=== PATIENT | female | born 1995 | race Caucasian/White ===

== ENCOUNTER 2017-01-07 13:50 | Observation (INO) | payer MEDICAID, SELFPAY ==
[2017-01-07 14:16] VITALS: BMI 24.3
--- NOTE | 2017-01-07 14:36 | HP.PCM_ITS ---
Problem List (1) Heroin dependence Status: Chronic (2) Cocaine use Status: Chronic (3) Hepatitis C Status: Chronic History of Present Illness Date of Admission: 01/07/17 Chief Complaint: nausea and vomiting, sweating and diarrhea. requesting medical stabilization for opiate withdrawal The patient is a 21 year old F who presented to the [facility] office today requesting medical stabilization to detox from chronic heroin abuse. She has been using heroin IV for 4 years. She also uses cocaine on a regular basis. Her parents have both been addicted to illicit drugs. Her mother is currently clean but, the father is still using. Nata is living with her GM. She is employed. she has been to rehab at [facility] in the past and was getting Suboxone from Dr. Alfaro. She was clean for 8-9 months but, they started hanging around her friends who used again. Has been using again for 2-3 years again now. She has been diagnosed with Hep C in the past but has not been treated. She has never seen a ID doctor. she last used heroin on 01/05. She took oral Dilaudid last night when the sx got bad. today she is having diarrhea, diaphoresis, N/V and restless leg.....sx have improved with tx since arriving on [facility]. She plans on attending [facility] again after her hospitalization is finished. To her knowledge she has not been tested for HIV. Past Medical History Past Medical History (Chronic Problems): Chronic Problems Cocaine use (Chronic) Hepatitis C (Chronic) Heroin dependence (Chronic) Allergies No Known Allergies Allergy (Verified 03/03/16 22:13) Home Medications: Ambulatory Orders Medication Instructions Recorded No Known/Unobtainable [No Known 03/03/16 Home Medications] Surgical History: noncontributory Psychiatric History: No pertinent psych hx [employer] WORKER History: No pertinent FIRST CAL[employer] WORKER history, - - has never been Lives: - - with her grandmother Smoking Status: Never smoker Tobacco Use: Non-smoker Alcohol: Rare Drugs: Cocaine, Heroin - *Family History Maternal History Items: - - mother is a drug addict...currently clean Paternal History Items: - - father continues to use illicit drugs Review of Systems Constitutional: Reports: Malaise. Denies: Chills, Fever Eyes: Denies: Blurred vision, Vision Change HEENT: Reports: - - rhinorrhea. Denies: Head Aches, Sinus Congestion, Sinus Drainage Cardiovascular: Denies: Chest Pain, Light Headedness, Palpitations Respiratory: Denies: Cough, Shortness of breath at rest, Sputum production Gastrointestinal: Reports: Abdominal Pain, Diarrhea, Nausea, Vomiting Genitourinary: Denies: Dysuria Gynecological: Denies: Breast symptoms, Vaginal discharge Musculoskeletal: Denies: Joint Pain, Joint Tenderness Skin: Reports: - - she has track ceballos on the left hand....no sign of cellulitis. Denies: Rash, Wounds Neurological: Denies: Numbness, Tingling, Focal weakness Psychiatric: Denies: Anxiety, Depression, Homicidal Ideations, Suicidal Ideations Endocrine: Denies: Hx of Thyroiditis Hematologic/ Lymphatic: Denies: Hx of blood clot VTE Information - Inpt Only VTE Present on Admission: No VTE Mechan Device Prophylaxis: None VTE Pharm Prophylaxis ordered?: No Reason prophylaxis not ordered:: Treatment Not Indicated - she is ambulatory and is at very low risk for DVT - Physical Exam General: Alert, Oriented x3, Cooperative HEENT: Atraumatic, PERRLA, EOMI, Normocephalic Oral: No Gingival or Mucosal Lesions/ Ulcerations Neck: Supple, No JVD, Negative Carotid Bruits Lungs: Clear to auscultation, Normal air movement Cardiovascular: Regular rate, No murmurs Abdomen: Bowel Sounds Present, Soft, Non Tender Extremities: No edema, Capillary Refill Less than 3 Seconds Skin: No rashes, No breakdown, - - track ceballos on the hand...no erythema or DC Musculoskeletal: No Muscle Wasting Neurological: Cranial nerves II-XII grossly intact, Neuro grossly intact Psych/Mental Status: Normal Affect, Appropriate Weight: 124 lb 5.451 oz Body Mass Index (BMI) 24.3 Assessment/Plan Impression 1. heroin dependence in active withdrawal - admitted for medical stabilization and plans on going to [facility] as an OP post discharge 2. cocaine use/abuse 3. hx of hepatitis C admitted for medical stabilization. General orders and opiod order sets initiated.
[2017-01-07] MEDS: Buprenorphine HCl 2 MG TAB.SUBL SL ×2 (14:48→21:52)
[2017-01-07] MEDS: cloNIDine HCl 0.2 MG Tablet PO (14:49)
[2017-01-07 14:55] VITALS: BP 116/64; PULSE 89; RESP 18; TEMP 36.8
[2017-01-07] MEDS: QUEtiapine 25 MG Tablet PO ×2 (15:29→21:52)
[2017-01-07 17:06] LABS: Absolute Lymphocyte Count 1.05 X10^3/ul (0.83-4.51); Absolute Neutrophil Count 8.2 X10^3/uL (2.0-7.7); Basophil# 0.04 X10^3/uL; Basophil% 0.4 % (0-1); Eosinophil# 0.01 X10^3/uL; Eosinophils% 0.1 % (0-5); Hematocrit 40.2 % (37-47); Hemoglobin 13.1 g/dl (12.0-15.0); Lymphocyte # 1.05 X10^3/ul (4.0); Lymphocyte % 10.9 % (19-41); Mean Corp Hgb Conc 32.6 g/gl (32-36); Mean Corpuscular Hgb 29.1 pg (27.0-32.0); Mean Corpuscular Volume 89.3 fL (81-99); Mean Platelet Vol. 12.4 fl (6.2-12.0); Monocyte# 0.36 X10^3/uL; Monocyte% 3.7 % (0-10); Neutrophil # 8.18 X10^3/uL (2.7-7.7); Neutrophil % 84.6 % (47-70); Platelet Count 288 K/mm3 (150-450); RBC Distribution Width CV 13.9 % (11.6-14.6); RBC Distribution Width SD 44.6 fl (35.1-43.9); White Blood Count 9.7 K/mm3 (4.4-11.0)
[2017-01-07 17:09] LABS: POSITIVE COUNT NO; POSITIVE DIFFERENTIAL NO; POSITIVE MORPHOLOGY NO
[2017-01-07 17:37] LABS: ALB/GLOB Ratio 0.9 RATIO (0.9-2.4); AST(SGOT) 23 U/L (15-37); Alanine Aminotransfer ALT/SGPT 42 U/L (12-78); Albumin, Serum 3.8 g/dL (3.4-5.0); Alkaline Phosphatase 95 U/L (45-117); Anion Gap 9 (5-15); BUN 7 mg/dL (7-18); BUN/Creat Ratio 11.3 RATIO (10-20); Calcium,Total 9.2 mg/dL (8.5-10.1); Chloride 104 mmol/L (98-107); Creatinine, Serum 0.62 mg/dL (0.55-1.02); EST Glomerular Filtration Rate 129 mL/min (>60); Est Glom Filt Rate - Afr Amer 156 mL/min (>60); Estimated Creatinine Clearance 103.97 ml/min; Globulin 4.1 g/dL (2.3-3.5); Glucose 107 mg/dL (70-110); Potassium 3.8 mmol/L (3.5-5.1); Protein, Total 7.9 g/dL (6.4-8.2); Sodium Level 141 mmol/L (136-145)
[2017-01-07 18:22] LABS: Pregnancy, Serum, hCG Quali. NEGATIVE Negative (0-9 Nonpreg)
[2017-01-07 18:35] VITALS: BP 101/52; PULSE 73; RESP 18; TEMP 36.9; O2SAT 99
--- NOTE | 2017-01-07 18:44 | NURSING ---
C/O feeling like she cannot settle down, like she constantly needs to move and is anxious. 50 mg vistaril given per orders. see mar. will continue to monitor.
[2017-01-07 20:03] VITALS: BP 100/58; PULSE 68; RESP 16; TEMP 36.6; O2SAT 100
[2017-01-07] MEDS: Carbidopa/Levodopa 25/100 Tablet PO (20:09)
[2017-01-07] MEDS: traZODone 50 MG Tablet PO (21:51)
[2017-01-07 22:11] VITALS: RESP 16
[2017-01-07] MEDS: Methocarbamol 750 MG Tablet PO (23:07)
[2017-01-08 06:13] VITALS: BP 92/58; PULSE 63; RESP 18; TEMP 36.4; O2SAT 99
[2017-01-08 06:17] VITALS: RESP 18
[2017-01-08] MEDS: Methocarbamol 750 MG Tablet PO ×3 (06:20→18:19)
[2017-01-08] MEDS: Buprenorphine HCl 2 MG TAB.SUBL SL ×3 (06:20→22:01)
[2017-01-08 06:51] LABS: Amphetamine Urine VISTA NEGATIVE (<1000 ng/mL); Barbiturate Urine VISTA NEGATIVE (< 200 ng/mL); Benzodiazepine Urine VISTA POSITIVE (< 200 ng/mL); Cocaine Urine VISTA POSITIVE (< 300 ng/mL); Ecstacy Urine VISTA NEGATIVE (< 500 ng/mL); Methadone Urine VISTA NEGATIVE (< 300 ng/mL); PCP Urine VISTA NEGATIVE (< 25 ng/mL); THC Urine VISTA NEGATIVE (< 50 ng/mL); Vista UDS pH Range 7
[2017-01-08] MEDS: Thiamine Hydrochloride 100 MG Tablet PO (07:41)
[2017-01-08] MEDS: Multivitamins,Ther W-Minerals Tablet 1 TABLET PO (07:41)
[2017-01-08] MEDS: Folic Acid 1 MG Tablet PO (07:41)
[2017-01-08 10:11] VITALS: BP 93/53; PULSE 72; RESP 16; TEMP 36.7; O2SAT 98
--- NOTE | 2017-01-08 11:00 | PCM.PROGNOTE ---
Subjective: Chief complaint: Follow-up after admission for medical stabilization for opioid withdrawal. Patient seen and examined. No acute events overnight. She has no more nausea vomiting. Denies any more abdominal pain or diarrhea. She still having leg cramps and restlessness. Denies fever or chills. Denied chest pain or shortness of breath. Vital signs are stable. - Physical Exam General: Alert, Oriented x3, Cooperative, No apparent distress HEENT: Atraumatic, PERRLA, EOMI Oral: Moist Mucosa, No Gingival or Mucosal Lesions/ Ulcerations Neck: Supple, No JVD, Negative Carotid Bruits, Trachea Midline, Thyroid Normal Size and Texture Lungs: Clear to auscultation, No rhonchi, No wheeze, No rales, Diminished Cardiovascular: Regular rate, Regular Rhythm, Normal S1, Normal S2, No murmurs Abdomen: Bowel Sounds Present, Soft, Non Tender, Non-Distended, No Hepato-splenomegaly Extremities: No clubbing, No cyanosis, No edema Skin: No rashes, No breakdown Neurological: Neuro grossly intact Psych/Mental Status: Normal Affect, Appropriate, Alert and oriented to time, place, person, mood and affect Vital Signs Temp Pulse Resp BP Pulse Ox 98.1 F 72 16 93/53 98 01/08/17 10:11 01/08/17 10:11 01/08/17 10:11 01/08/17 10:11 01/08/17 10:11 Oxygen Delivery Method Room Air Weight: 124 lb 5.451 oz Body Mass Index (BMI) 24.3 Intake and Output for Last 24 Hours 01/06/17 01/07/17 01/08/17 23:59 23:59 23:59 Intake Total 680 200 Balance 680 200 Laboratory Tests Past 24 Hrs 01/07/17 01/07/17 01/07/17 15:50 15:50 15:50 WBC 9.7 RBC 4.50 Hgb 13.1 Hct 40.2 MCV 89.3 MCH 29.1 MCHC 32.6 RDW 13.9 RDW Differential 44.6 H Plt Count 288 MPV 12.4 H Immature Gran % (Auto) 0.300 Neut % (Auto) 84.6 H Lymph % (Auto) 10.9 L [place] % (Auto) 3.7 Eos % (Auto) 0.1 Baso % (Auto) 0.4 Absolute Neuts (auto) 8.2 H Absolute Lymphs (auto) 1.05 Total Counted Not Reportable Sodium 141 Potassium 3.8 Chloride 104 Carbon Dioxide 28.0 Anion Gap 9 BUN 7 Creatinine 0.62 Estim Creat Clear Calc 103.97 Est GFR (MDRD) Af Amer 156 Est GFR (MDRD) Non-Af 129 BUN/Creatinine Ratio 11.3 Glucose 107 Calcium 9.2 Total Bilirubin 0.30 AST 23 ALT 42 Alkaline Phosphatase 95 Total Protein 7.9 Albumin 3.8 Globulin 4.1 H Albumin/Globulin Ratio 0.9 Serum , Qual NEGATIVE Urine Opiates Screen Urine Methadone Screen Ur Barbiturates Screen Ur Phencyclidine Scrn Ur Amphetamines Screen U Methamphetamin-MDMA U Benzodiazepines Scrn Urine Cocaine Screen U Cannabinoids Screen Ur Drug Screen Comment 01/08/17 06:30 WBC RBC Hgb Hct MCV MCH MCHC RDW RDW Differential Plt Count MPV Immature Gran % (Auto) Neut % (Auto) Lymph % (Auto) [place] % (Auto) Eos % (Auto) Baso % (Auto) Absolute Neuts (auto) Absolute Lymphs (auto) Total Counted Sodium Potassium Chloride Carbon Dioxide Anion Gap BUN Creatinine Estim Creat Clear Calc Est GFR (MDRD) Af Amer Est GFR (MDRD) Non-Af BUN/Creatinine Ratio Glucose Calcium Total Bilirubin AST ALT Alkaline Phosphatase Total Protein Albumin Globulin Albumin/Globulin Ratio Serum , Qual Urine Opiates Screen POSITIVE H Urine Methadone Screen NEGATIVE Ur Barbiturates Screen NEGATIVE Ur Phencyclidine Scrn NEGATIVE Ur Amphetamines Screen NEGATIVE U Methamphetamin-MDMA NEGATIVE U Benzodiazepines Scrn POSITIVE H Urine Cocaine Screen POSITIVE H U Cannabinoids Screen NEGATIVE Ur Drug Screen Comment Assessment/Plan This is a 21 years old female patient admitted because of nausea, vomiting, diarrhea due to opioid withdrawal and admitted for medical stabilization. #1 opioid withdrawal: Patient has been using IV heroin and cocaine. Her vital signs are stable. Her routine blood work is unremarkable. Serum test was negative. Urine drug screen was positive for opioids, benzodiazepines and cocaine. She is on tapering course of Subutex, as needed Sinemet, Bentyl, Seroquel. She is on ibuprofen and Tylenol for pain and aches. She reported improvement of her symptoms. Plan: Continue same treatment. #2 chronic hepatitis C: Never been treated for it. Her LFT is normal. #3 DVT prophylaxis: Low risk patient, no prophylaxis indicated. This note was generated with [employer] software. It may contain incorrect words, spelling, and punctuation that were not noted in checking the note before signing.
[2017-01-08 13:41] VITALS: BP 93/53; PULSE 69; RESP 16; TEMP 36.4; O2SAT 100
--- NOTE | 2017-01-08 15:18 | CHAPLAIN ---
followed dietary into room to introduce myself and role to patient; pt is pleasant and says it would be fine to stop back another time to visit with her; affirmed patient decision to be here and offered future support
[2017-01-08] MEDS: QUEtiapine 25 MG Tablet PO (16:24)
[2017-01-08 17:33] VITALS: BP 95/51; PULSE 88; RESP 16; TEMP 36.7; O2SAT 97
[2017-01-08] MEDS: Carbidopa/Levodopa 25/100 Tablet PO (18:19)
--- NOTE | 2017-01-08 18:20 | NURSING ---
MED PER PT REQUEST AND MAR FOR RESTLESS LEGS
[2017-01-08 22:00] VITALS: BP 102/46; PULSE 78; RESP 15; TEMP 37; O2SAT 99
[2017-01-08] MEDS: traZODone 50 MG Tablet PO (22:01)
[2017-01-09] VITALS (7 sets, daily range): BP systolic 109–122; BP diastolic 62–76; PULSE 80–109; RESP 16–18; TEMP 36.5–37; O2SAT 100
[2017-01-09] MEDS: Buprenorphine HCl 2 MG TAB.SUBL SL ×2 (06:27→18:19)
--- NOTE | 2017-01-09 08:02 | PN_ITS ---
Subjective: Chief complaint: Follow-up after admission for opioid withdrawal for medical stabilization. Patient seen and examined. No acute events overnight. She is asymptomatic, no significant complaints. Vital signs are stable. - Physical Exam General: Alert, Oriented x3, Cooperative, No apparent distress HEENT: Atraumatic, PERRLA, EOMI Oral: Moist Mucosa, No Gingival or Mucosal Lesions/ Ulcerations Neck: Supple, No JVD, Negative Carotid Bruits, Trachea Midline, Thyroid Normal Size and Texture Lungs: Clear to auscultation, No rhonchi, No wheeze, No rales Cardiovascular: Regular rate, Regular Rhythm, Normal S2, No murmurs Abdomen: Bowel Sounds Present, Soft, Non Tender, Non-Distended, No Hepato- splenomegaly Extremities: No clubbing, No cyanosis, No edema Skin: No rashes, No breakdown Neurological: Neuro grossly intact Psych/Mental Status: Normal Affect, Appropriate Vital Signs Temp Pulse Resp BP Pulse Ox 98.5 F 80 16 109/66 100 01/09/17 06:00 01/09/17 06:00 01/09/17 06:00 01/09/17 06:00 01/09/17 06:00 Oxygen Delivery Method Room Air Weight: 124 lb 5.451 oz Body Mass Index (BMI) 24.3 Intake and Output for Last 24 Hours 01/07/17 01/08/17 01/09/17 23:59 23:59 23:59 Intake Total 206 665 9923 Balance 215 957 9464 Assessment/Plan This is a 21 years old female patient admitted because of nausea, vomiting, diarrhea due to opioid withdrawal and admitted for medical stabilization. #1 opioid withdrawal: She is on tapering course of Subutex, as needed Sinemet, Bentyl, Seroquel, methocarbamol, Vistaril, Imodium and multivitamins. Her vital signs remained stable. Symptoms significantly improved, almost resolved. Her routine blood work is unremarkable. Serum test was negative. Urine drug screen was positive for opioids, benzodiazepines and cocaine. Plan: Continue same treatment. #2 chronic hepatitis C: Never been treated for it. Her LFT is normal. #3 DVT prophylaxis: Low risk patient, no prophylaxis indicated. This note was generated with [employer] software. It may contain incorrect words, spelling, and punctuation that were not noted in checking the note before signing.
[2017-01-09] MEDS: Thiamine Hydrochloride 100 MG Tablet PO (09:28)
[2017-01-09] MEDS: Folic Acid 1 MG Tablet PO (09:28)
[2017-01-09] MEDS: Multivitamins,Ther W-Minerals Tablet 1 TABLET PO (09:28)
[2017-01-09] MEDS: Methocarbamol 750 MG Tablet PO (14:14)
--- NOTE | 2017-01-09 17:05 | CHAPLAIN ---
brief follow up from a brief introduction yesterday; pt said she is doing fine as she watches Nexflex on her smartphone; pt says she has a plan through [facility] and has family around to help her; pt is affirmed by this dental scheduling coordinator for taking these steps and seeking a better way; no other needs noted
[2017-01-09] MEDS: traZODone 50 MG Tablet PO (22:16)
--- NOTE | 2017-01-10 00:10 | NURSING ---
Pt awake now, she has been sleeping after nurse gave her the trazadone. Father is staying the night. He has been going in and out of the room several times during the night. Nurse spoke to him about nurse giving patient sleeping pill, so she could sleep tonight. Father had brought in some fast food also. Nurse explained that he should not be bringing food into patient. He stated she only ate a few of his chicken nuggets.
[2017-01-10 05:58] VITALS: BP 91/64; PULSE 75; RESP 16; TEMP 35.8
[2017-01-10] MEDS: Buprenorphine HCl 2 MG TAB.SUBL SL (06:54)
[2017-01-10 07:57] VITALS: BP 100/62; PULSE 72; RESP 18; TEMP 37.1
[2017-01-10] MEDS: Folic Acid 1 MG Tablet PO (08:01)
[2017-01-10] MEDS: Thiamine Hydrochloride 100 MG Tablet PO (08:01)
[2017-01-10] MEDS: Multivitamins,Ther W-Minerals Tablet 1 TABLET PO (08:02)
--- NOTE | 2017-01-10 08:13 | PN_ITS ---
Subjective: Chief complaint: Follow-up after admission for opioid withdrawal for medical stabilization. Patient seen and examined. No acute events overnight. She is asymptomatic, denied any significant complaints. Has no more nausea or vomiting. Denied abdominal pain, diarrhea. Denied body aches or pains. Vital signs are stable. - Physical Exam General: Alert, Oriented x3, Cooperative, No apparent distress HEENT: Atraumatic, PERRLA, EOMI Oral: Moist Mucosa, No Gingival or Mucosal Lesions/ Ulcerations Neck: Supple, No JVD, Negative Carotid Bruits, Trachea Midline, Thyroid Normal Size and Texture Lungs: Clear to auscultation, No rhonchi, No wheeze, No rales Cardiovascular: Regular rate, Regular Rhythm, Normal S1, Normal S2, No murmurs Abdomen: Bowel Sounds Present, Soft, Non Tender, Non-Distended, No Hepato- splenomegaly Extremities: No clubbing, No cyanosis, No edema Skin: No rashes, No breakdown Neurological: Neuro grossly intact Psych/Mental Status: Normal Affect, Appropriate Vital Signs Temp Pulse Resp BP Pulse Ox 98.8 F 72 18 100/62 100 01/10/17 07:57 01/10/17 07:57 01/10/17 07:57 01/10/17 07:57 01/09/17 06:00 Oxygen Delivery Method Room Air Weight: 124 lb 5.451 oz Body Mass Index (BMI) 24.3 Intake and Output for Last 24 Hours 01/08/17 01/09/17 01/10/17 23:59 23:59 23:59 Intake Total 200 1142 470 Balance 200 1142 470 Assessment/Plan This is a 21 years old female patient admitted because of nausea, vomiting, diarrhea due to opioid withdrawal and admitted for medical stabilization. #1 opioid withdrawal: Symptoms resolved, has no more complaints. Vital signs are stable. She is on last day of tapering course of Subutex, as needed Sinemet , Bentyl, Seroquel, methocarbamol, Vistaril, Imodium and multivitamins. Her routine blood work is unremarkable. Serum test was negative. Urine drug screen was positive for opioids, benzodiazepines and cocaine. Plan: DC home today. #2 chronic hepatitis C: Never been treated for it. Her LFT is normal. #3 DVT prophylaxis: Low risk patient, no prophylaxis indicated. This note was generated with Dragon dictation software. It may contain incorrect words, spelling, and punctuation that were not noted in checking the note before signing.
--- NOTE | 2017-01-10 10:51 | PCM.DC ---
- Discharge Diagnoses Current Active Problems: Current Active and Chronic Problems Cocaine use (Chronic) Hepatitis C (Chronic) Heroin dependence (Chronic) You will use the following diet at home:: Regular Your food should be the consistency of: Regular Discharge Activity: Return to Normal Activity Weight Bearing Status: Full weight bearing Call your doctor if you observe: Fever of 101 or Higher, Shortness of breath, Dizziness, Fainting spells, Chest pain, Increased palpitations (irregular heartbeat), Uncontrolled pain Additional Instructions: [facility]. Allergies/Adverse Reactions: Allergies No Known Allergies Allergy (Verified 03/03/16 22:13) Medications to take at Discharge No Known/Unobtainable [No Known Home Medications] 03/03/16 Primary Care Physician: Todd Bello MD [Primary Care Provider] - Please follow up with your Primary Care Physician in: as needed.
--- NOTE | 2017-01-10 13:08 | DS.PCM_ITS ---
Discharge Date and Diagnosis Date of Admission: 01/07/17 Date of Discharge: 01/10/17 - Primary Discharge Diagnosis Opioid withdrawal, admitted for medical stabilization. - Secondary Discharge Diagnosis Chronic Problems Cocaine use (Chronic) Hepatitis C (Chronic) Heroin dependence (Chronic) Hospital Course and Treatment Operations: None Procedures: None Summary of Care Provided: The patient is a 21 year old F admitted because of symptoms of nausea, vomiting , diarrhea and body aches due to opiate withdrawal. She has been using IV heroin for 4 years. She was admitted for medical stabilization through [facility] service protocol. Her vital signs remained stable throughout admission. Her routine blood work was unremarkable. LFT and lipase were normal. Serum test was negative. Urine drug screen was positive for opioids, benzodiazepines and cocaine. She was treated with tapering course of Subutex, as needed Sinemet, Bentyl, Seroquel, methocarbamol, Vistaril, Imodium and multivitamins. With above-mentioned treatment, patient symptoms improved and she completed the tapering course of Subutex. She had a history of chronic hepatitis C, never been treated for it and his LFT was normal. Patient discharged home in a stable medical condition, recommended to follow-up with [facility] program regarding further instructions, recommended follow-up with PCP as needed. Discharge Activity: Return to Normal Activity Weight Bearing Status: Full weight bearing Call your doctor if you observe: Fever of 101 or Higher, Shortness of breath, Dizziness, Fainting spells, Chest pain, Increased palpitations (irregular heartbeat), Uncontrolled pain Home Medications: Medications to take at Discharge No Known/Unobtainable [No Known Home Medications] 03/03/16 Primary Care Physician: Todd Bello MD [Primary Care Provider] - Please follow up with your Primary Care Physician in: as needed. Additional Instructions: Please follow-up with [facility] program. Disposition: Home Minutes spent on discharge:: 22 Patient Condition:: Good Meaningful Use Info Meaningful Use Diagnoses (Choose all that apply): None applicable
== END 2017-01-10 11:14 | disposition home or self-care (01) | DRG 773 ==
LOC: MS2 04-20 15:31
PROVIDERS: Admitting Provider Internal Medicine; Family Provider Family Medicine; PCP Family Medicine; Visit Provider Hospitalist
DX: F11.23 Opioid dependence with withdrawal (principal); B18.2 Chronic viral hepatitis C; F14.90 Cocaine use, unspecified, uncomplicated
CPT/HCPCS: 80053; 80307; 84703; 85025; 97802; 99218; G0378; G0379

== ENCOUNTER 2017-12-14 01:14 | Emergency (ER) | payer MEDICAID, SELFPAY ==
[2017-12-14 01:16] VITALS: BP 129/88; PULSE 108; RESP 16; TEMP 36.9; O2SAT 96; BMI 23.6
--- NOTE | 2017-12-14 01:28 | ED.DCSUM_ITS ---
- ER Visit Summary Date of Service: 12/14/17 Chief Complaint: Gum infection History of Present Illness: The patient is a 22 F who complains of 2-3 days of pain in her gums. She states this is throughout her entire mouth both sides upper and lower. She denies fevers nausea vomiting. No jaw or facial swelling. She has had some associated headaches as well. She complains of a mild headache currently. Physical Examination: Afebrile heart rate 108 vitals otherwise normal Patient resting comfortably no distress No trismus no sublingual edema no dental tenderness she does have widespread dental decay she has gingival erythema no necrosis Heart regular rate and rhythm Lungs are clear Neck supple with no lymphadenopathy Test Results: Not indicated Emergency Department Course and Treatment: History and examination are consistent with gingivitis. She does not have evidence of acute necrotizing ulcerative gingivitis. She does not have signs of focal dental abscess. She was advised on oral care and was referred to a list of local dental clinics. She was given a dose of naproxen here and a prescription for the same for pain. I do not believe oral antibiotics are indicated at this time based on my current examination. She does understand return for new or worsening symptoms. Treatment Plan: [] Disposition: Discharge Impression: Gingivitis Headaches This note was generated with [employer] dictation software. It may contain incorrect words, spelling, and punctuation that were not noted in review of the chart prior to signing ED Disposition - Plan for ED Patient: Chief Complaint: Dental Referrals: Todd Bello MD [Primary Care Provider] -
--- NOTE | 2017-12-14 01:29 | ED.DEP ---
ED Disposition - Plan for ED Patient: Chief Complaint: Dental Instructions: Understanding Gingivitis Prescriptions: Naproxen [Naprosyn] 500 mg PO BID #20 tab Referrals: Todd Bello MD [Primary Care Provider] -
[2017-12-14] MEDS: Naproxen 500 MG Tablet PO (01:44)
== END 2017-12-14 01:45 | disposition home or self-care (01) ==
LOC: ED 01:31
PROVIDERS: Emergency Provider Emergency Medicine; Family Provider Family Medicine; PCP Family Medicine
DX: K05.10 Chronic gingivitis, plaque induced (principal); R51 Headache; Z87.898 Personal history of other specified conditions
CPT/HCPCS: 99283

== ENCOUNTER 2021-09-13 15:13 | Emergency (ER) | payer SELFPAY ==
[2021-09-13 15:13] VITALS: BP 132/75; PULSE 125; RESP 16; TEMP 37; O2SAT 98; BMI 24.4
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
[2021-09-13 16:34] VITALS: PULSE 108; RESP 17; O2SAT 97
== END 2021-09-13 16:35 | disposition home or self-care (01) ==
LOC: ED 15:36
PROVIDERS: Emergency Provider Emergency Medicine; PCP Family Medicine; Visit Provider Emergency Medicine
DX: S39.012A Strain of muscle, fascia and tendon of lower back, initial encounter (principal); S00.83XA Contusion of other part of head, initial encounter; V44.6XXA Car passenger injured in collision with heavy transport vehicle or bus in traffic accident, initial encounter
CPT/HCPCS: 70486; 72100; 99282

== ENCOUNTER 2024-08-25 20:40 | Emergency (ER) | payer SELFPAY ==
[2024-08-25 20:40] VITALS: BP 132/101; PULSE 72; RESP 18; TEMP 36.6; O2SAT 96; BMI 25.9
== END 2024-08-25 20:54 | disposition left against medical advice (07) ==
LOC: ED 21:26
PROVIDERS: PCP Family Medicine
DX: F11.90 Opioid use, unspecified, uncomplicated (principal); Z53.21 Procedure and treatment not carried out due to patient leaving prior to being seen by health care provider

== ENCOUNTER 2024-08-26 00:14 | Observation (INO) | payer MEDICAID, SELFPAY ==
[2024-08-26] VITALS (10 sets, daily range): BP systolic 97–127; BP diastolic 46–76; PULSE 66–107; RESP 12–18; TEMP 36.4–37.2; O2SAT 96–100; BMI 26.2; BMI 21.5
--- NOTE | 2024-08-26 01:06 | EX.ED.SAOD ---
HPI History of Present Illness Chief Complaint: Substance Abuse Informant: patient Narrative Narrative: Brought in by EMS requesting detox from heroin. Reports snorts heroin least daily for the past year. Denies alcohol. Denies other recreational drug use. Last menstrual period earlier this month. Denies any chance of . No vomiting diarrhea. Apparently was here earlier however left due to busy department. She came by private vehicle at that time. She states she took a friend's clonidine earlier, around 9 PM took another friend's Suboxone. Denies suicidal or homicidal ideations. Denies nausea or vomiting. Prior similar symptoms: Yes PFSH PFSH Home Medications ?Medication ?Instructions ?Recorded ?Last Taken ?Type NK 08/26/24 Unknown History Allergy/AdvReac Type Severity Reaction Status Date / Time No Known Allergies Allergy Verified 08/26/24 00:15 Social History Smoking Status: Never smoker ROS ROS ED Constitutional Constitutional ED: Denies chills, fever(s) or sweats ENT ENT ED: Denies sore throat Cardiovascular Cardiovascular: Denies chest pain, leg edema, palpitations or racing heartbeat Respiratory/Chest Respiratory/Chest: Denies cough, dyspnea or dyspnea on exertion Gastrointestinal Gastrointestinal: Denies abdominal pain, diarrhea, nausea or vomiting Genitourinary Genitourinary ED: Denies dysuria, hematuria or urinary frequency Musculoskeletal Musculoskeletal: Denies back pain, extremity pain or neck pain Integumentary Denies rash or wounds Neurologic Neurologic: Reports other Details: Lower extremity restlessness ; Denies headache(s), paresthesias or weakness Psychiatric Psychiatric: Denies suicidal ideation or suicidal thoughts EXAM Physical Exam Const Vital Signs: 08/26/24 00:14 08/26/24 00:14 08/26/24 01:18 Temperature 97.5 F L Temperature Source Oral Pulse Rate 90 66 Respiratory Rate 18 12 Respiratory Effort Normal Non-Labored Respiratory Pattern Normal Blood Pressure 127/76 H 120/68 Blood Pressure Mean 93 85 Pulse Ox 98 98 Oxygen Delivery Method Room Air Room Air 08/26/24 01:30 Temperature 98.2 F Temperature Source Pulse Rate 66 Respiratory Rate 12 Respiratory Effort Respiratory Pattern Blood Pressure 120/68 Blood Pressure Mean 85 Pulse Ox 98 Oxygen Delivery Method Positive well nourished and well developed Constitutional Narrative: Nontoxic, restless in bed. General Appearance ED: well developed and NAD HEENT Reports moist mucous membranes normocephalic and atraumatic Neck full ROM Chest Wall Chest: Negative for tenderness Resp normal respiratory effort and normal air movement Effort and Inspection: symmetric chest movement; Negative for respiratory distress Cardio regular rate, regular rhythm and no murmurs Peripheral Pulses: pulses 2+ throughout GI normal to inspection, nondistended, normoactive bowel sounds and non-tender Palpation: Negative for guarding or rebound tenderness present Extremity normal to inspection General Extremety ED: Negative for edema or tenderness General Extremity: Negative for edema Neuro oriented x3 and no sensory deficits noted Sensorium / Orientation: awake and alert Psych Psych Narrative: Denies suicidal homicidal ideations. Skin no rashes or lesions noted and no wounds MDM MDM MDM Narrative Medical decision making narrative: Interventions / MDM: Differential diagnosis: Heroin dependence, heroin withdrawal Diagnosis considered but do not suspect: N/A My EKG interpretation: N/A Imaging independently reviewed and interpreted by myself: N/A External documents reviewed: N/A Test considered but not ordered:N/A ED course: Vital stable restlessness with heroin use. Denies suicidal homicidal ideations. Medical clearance labs will be obtained. Blood pressure stable. Will dose with clonidine in the ED due to restlessness. 0218: Labs stable alcohol negative, toxicology negative. Discussed with patient possibility of fentanyl that she snorts. She states possible, she gets powdered forms. less restless. negative. Will discuss with hospitalist for admission. Discussed with Dr. Ortega for admission. Re-evaluation: stable Disposition discussed with patient/family/significant other: Patient Case discussed with consulting clinician: Hospitalist This note was generated with [employer] dictation software. It may contain incorrect words, spelling, and punctuation that were not noted in checking the note before signing. Lab Data Attestation: I reviewed the patient's lab results. Labs: Laboratory Results - last 24 hr 08/26/24 08/26/24 01:25 01:32 WBC 11.5 H RBC 4.17 L Hgb 12.4 Hct 36.7 L MCV 88.0 MCH 29.7 MCHC 33.8 RDW Std Deviation 41.8 RDW Coeff of Nain 13.0 Plt Count 256 MPV 10.8 Immature Gran % (Auto) 0.300 Neut % (Auto) 83.0 H Lymph % (Auto) 11.4 L [place] % (Auto) 4.9 Eos % (Auto) 0.0 Baso % (Auto) 0.4 Absolute Neuts (auto) 9.5 H Absolute Lymphs (auto) 1.31 Nucleated RBC % 0 Sodium 140 Potassium 3.4 L Chloride 108 H Carbon Dioxide 24.0 Anion Gap 8 BUN 7 Creatinine 0.74 Estim Creat Clear Calc 100.17 Est GFR (MDRD) Af Amer 120 Est GFR (MDRD) Non-Af 99 BUN/Creatinine Ratio 9.5 L Glucose 133 H Calcium 9.4 Serum , Qual NEGATIVE Urine Opiates Screen NEGATIVE Urine Methadone Screen NEGATIVE Ur Barbiturates Screen NEGATIVE Ur Phencyclidine Scrn NEGATIVE Ur Amphetamines Screen NEGATIVE MDMA (Ecstasy) Screen NEGATIVE U Benzodiazepines Scrn NEGATIVE Urine Cocaine Screen NEGATIVE U Cannabinoids Screen NEGATIVE Ur Drug Screen Comment Ethyl Alcohol < 3.0 Discharge Plan Dx/Rx/DC Orders Clinical Impression: Heroin dependence, Opioid withdrawal, Restless legs Disposition Disposition: Acute Care Hospital [facility]
[2024-08-26] MEDS: cloNIDine HCl 0.1 MG Tablet PO (01:18)
[2024-08-26 01:39] LABS: Absolute Lymphocyte Count 1.31 X10^3/uL (0.83-4.51); Absolute Neutrophil Count 9.5 X10^3/uL (2.0-7.7); Basophil# 0.05 X10^3/uL; Basophil% 0.4 % (0-1); Hematocrit 36.7 % (37-47); Hemoglobin 12.4 g/dL (12.0-15.0); Lymphocyte # 1.31 X10^3/ul (0.83-4.51); Lymphocyte % 11.4 % (19-41); Mean Corp Hgb Conc 33.8 g/dL (32-36); Mean Corpuscular Hgb 29.7 pg (27.0-32.0); Mean Platelet Vol. 10.8 fl (6.2-12.0); Monocyte# 0.56 X10^3/uL; Monocyte% 4.9 % (0-10); NRBC Flagged by Analyzer 0 % (0-5); Platelet Count 256 K/mm3 (150-450); RBC Distribution Width SD 41.8 fl (35.1-43.9); Red Blood Count 4.17 M/mm3 (4.2-5.4); White Blood Count 11.5 K/mm3 (4.4-11.0)
[2024-08-26 01:58] LABS: Alcohol, Blood (Medical)-Serum < 3.0 mg/dL
[2024-08-26 02:00] LABS: Anion Gap 8 (5-15); BUN 7 mg/dL (7-18); BUN/Creat Ratio 9.5 RATIO (10-20); Calcium,Total 9.4 mg/dL (8.5-10.1); Chloride 108 mmol/L (98-107); Creatinine, Serum 0.74 mg/dL (0.55-1.02); EST Glomerular Filtration Rate 99 mL/min (>60); Est Glom Filt Rate - Afr Amer 120 mL/min (>60); Estimated Creatinine Clearance 100.17 ml/min; Glucose 133 mg/dL (74-106); Potassium 3.4 mmol/L (3.5-5.1); Sodium Level 140 mmol/L (136-145)
[2024-08-26 02:11] LABS: Internal QC Validated? YES +Cl - CLEAR BKGD; Pregnancy, Serum, hCG Quali. NEGATIVE Negative
[2024-08-26 02:13] LABS: Amphetamine Urine NEGATIVE (<1000 ng/mL); Barbiturate Urine NEGATIVE (< 200 ng/mL); Benzodiazepine Urine NEGATIVE (< 200 ng/mL); Cocaine Urine NEGATIVE (< 300 ng/mL); Ecstacy Urine NEGATIVE (< 500 ng/mL); Methadone Urine NEGATIVE (< 300 ng/mL); Opiates Urine NEGATIVE (< 300 ng/mL); PCP Urine NEGATIVE (< 25 ng/mL); THC Urine NEGATIVE (< 50 ng/mL); Vista UDS pH Range 5
--- NOTE | 2024-08-26 02:57 | HP.PCM.HOS_ITS ---
[facility] - General General Date of Admission: 08/26/24 Date of Service: 08/26/24 Chief Complaint: Opiate Withdrawal. HPI Narrative DAPHNE LEMON, is a 29 F with a past medical history of chronic heroin and fentanyl abuse via snorting daily for the past year, history of cocaine abuse, hepatitis C and history of restless legs triggered by previous bouts of opiate withdrawal who presents to [facility] ER complaining of wanting help with opiate detoxification due to opiate withdrawal. Ms. Lemon reports her symptoms began approximately a few hours prior to admission when she took one friend's clonidine and then she had worsening symptoms of withdrawal so she took a another friend's Suboxone around 9:00 PM. She denies other illicit drug use, IVDA use or EtOH abuse. admits to heightened anxiety but she denies suicidal or homicidal ideation. She states she came in to the ER earlier today for this issue but subsequently left because of business of the department. Her LMP was earlier this month with serum test negative on admission. She also denies associated fever, chills, nausea, vomiting, diarrhea, constipation, chest pain, SOB or headache but she does admits to restless legs and that her urine has been darker than usual. In the ER she was diagnosed with Acute Opiate Withdrawal in the setting of Chronic Opiate Abuse with laboratory evidence of Hypokalemia of 3.4 mmol/L present on admission and Leukocytosis of 11.5K present on admission without obvious signs of infection with UA pending at this time and she was then admitted to the general medical floor for ongoing care for a stay that is expected to extend beyond 2 midnights. PFS Home Medications ?Medication ?Instructions ?Recorded ?Last Taken ?Type NK 08/26/24 Unknown History Allergy/AdvReac Type Severity Reaction Status Date / Time No Known Allergies Allergy Verified 08/26/24 00:15 Social History Smoking Status: Never smoker ROS ROS Narrative Review of Systems: Constitutional: Patient denies fever or chills. Eyes: Patient denies changes in vision or discharge from eyes. ENT: Patient denies runny nose, sore throat or ear pain. Resp: Patient denies SOB or cough. CV: Patient denies chest pain, palpitations or heart racing. GI: Patient denies abdominal pain, nausea, vomiting, diarrhea or constipation. : Patient denies dysuria or hematuria. MSK: Patient denies arthralgias or myalgias. Skin: Patient denies rash, abscess, wounds or jaundice. Psych: Patient admits to heightened anxiety but she denies SI or HI. Allergy: Patient denies lip swelling, tongue swelling or urticaria. Hematology: Patient denies easy bleeding or easy bruisability. Endocrinology: Patient denies polyuria, polydipsia or polyphagia. 14 point ROS otherwise negative except for positives noted above in HPI. Vital Signs Vital Signs Vital Signs: 08/26/24 00:14 08/26/24 00:14 08/26/24 01:18 Temperature 97.5 F L Temperature Source Oral Pulse Rate 90 66 Respiratory Rate 18 12 Respiratory Effort Normal Non-Labored Respiratory Pattern Normal Blood Pressure 127/76 H 120/68 Blood Pressure Mean 93 85 Pulse Ox 98 98 Oxygen Delivery Method Room Air Room Air 08/26/24 01:30 Temperature 98.2 F Temperature Source Pulse Rate 66 Respiratory Rate 12 Respiratory Effort Respiratory Pattern Blood Pressure 120/68 Blood Pressure Mean 85 Pulse Ox 98 Oxygen Delivery Method Weight Weight: 143 lb 4.807 oz Body Mass Index (BMI) 26.2 Physical Exam Const alert, oriented x3, no apparent distress, average body habitus and healthy appearing General Appearance: cooperative HEENT normocephalic, head/scalp atraumatic, hearing grossly normal bilaterally and moist oral mucous membranes Eyes PERRL, EOMs intact bilaterally and conjunctivae normal Neck no lymphadenopathy, supple and no JVD Resp normal respiratory effort, no retractions, no use of accessory muscles and clear to auscultation bilaterally Cardio regular rate and regular rhythm GI normal to inspection, nondistended, normoactive bowel sounds, soft to palpation, non-tender and non-distended Extremity normal to inspection, full ROM and no clubbing, cyanosis or edema Skin Skin Narrative: Patient has no evidence of rash, abscess, wounds or jaundice. Neuro oriented x3, CN's II-XII intact bilaterally, moves all extremities and no focal motor deficits Sensorium / Orientation: awake, alert, oriented to person, oriented to place and oriented to time Speech: speech normal Psych Psych Narrative: Patient noted to have restless legs. Mood & Affect: anxious Results Medical Records Data Attestation: I reviewed the patient's medical records Lab / Micro Data Attestation: I reviewed the patient's lab results. 08/26/24 01:25 08/26/24 01:25 Labs: Laboratory Results - last 24 hr 08/26/24 01:25: WBC 11.5 H, RBC 4.17 L, Hgb 12.4, Hct 36.7 L, MCV 88.0, MCH 29.7, MCHC 33.8, RDW Std Deviation 41.8, RDW Coeff of Nain 13.0, Plt Count 256, MPV 10.8, Immature Gran % (Auto) 0.300, Neut % (Auto) 83.0 H, Lymph % (Auto) 11.4 L, [place] % (Auto) 4.9, Eos % (Auto) 0.0, Baso % (Auto) 0.4, Absolute Neuts (auto) 9.5 H, Absolute Lymphs (auto) 1.31, Nucleated RBC % 0, Sodium 140, P otassium 3.4 L, Chloride 108 H, Carbon Dioxide 24.0, Anion Gap 8, BUN 7, Creatinine 0.74, Estim Creat Clear Calc 100.17, Est GFR (MDRD) Af Amer 120, Est GFR (MDRD) Non-Af 99, BUN/Creatinine Ratio 9.5 L, Glucose 133 H, Calcium 9.4, Serum , Qual NEGATIVE, Ethyl Alcohol < 3.0 08/26/24 01:32: Urine Opiates Screen NEGATIVE, Urine Methadone Screen NEGATIVE, Ur Barbiturates Screen NEGATIVE, Ur Phencyclidine Scrn NEGATIVE, Ur Amphetamines Screen NEGATIVE, MDMA (Ecstasy) Screen NEGATIVE, U Benzodiazepines Scrn NEGATIVE, Urine Cocaine Screen NEGATIVE, U Cannabinoids Screen NEGATIVE, Ur Drug Screen Comment Assessment & Plan Assessment/Plan (1) Opioid withdrawal: (2) Restless legs: (3) Heroin dependence: (4) Hypokalemia: (5) Leukocytosis: QUALIFIERS: Leukocytosis type: unspecified Qualified Code(s): D 72.829 - Elevated white blood cell count, unspecified (6) Hepatitis C: QUALIFIERS: Hepatic coma status: without hepatic coma Viral hepatitis chronicity: chronic Qualified Code(s): B18.2 - Chronic viral hepatitis C (7) Cocaine use: PLAN: Plan 1. Acute Opiate Withdrawal in the setting of Chronic Opiate Abuse with Restless Legs - Admit to general medical floor for treatment under the opiate detoxification protocol primarily consisting of buprenorphine taper. Opiate Cessation will be strongly encouraged. 2. Hypokalemia of 3.4 mmol/L present on admission complicating #1 - Patient ordered supplemental KCl with recheck of level pending to confirm repletion. 3. Leukocytosis of 11.5K present on admission without obvious signs of infection with UA pending at this time - Follow up with UA results and start antibiotic treatment if indicated. 4. Chronic hepatitis C - Noted. 5. History of cocaine abuse - Noted with UDS this admission negative for this agent. 6. DVT prophylaxis - Lovenox 40 mg sq daily plus patient to be up ad sveta. Total time: Approximately (but not less than) 55 minutes. Charges/Coding Visit Charges Inpatient E&M: 08312 Init Hosp L2
[2024-08-26] MEDS: 0.9% Normal Saline (1000mL) 1,000 ML 100 ML IV (03:55)
[2024-08-26] MEDS: Potassium Chloride Oral Tablet 20 MEQ 60 MEQ PO (05:48)
[2024-08-26] MEDS: Enoxaparin 40 MG/0.4 ML Syringe SC (06:44)
[2024-08-26] MEDS: 0.9% Saline Lock 10 ML Syringe IV ×2 (06:45→14:17)
--- NOTE | 2024-08-26 08:17 | PN.HOSP_ITS ---
Reason for Visit Reason for Visit: Opiate detox Subjective Subjective Ms. Smith is a 29-year-old female who presents emergency department early this morning on 08/26/2024 for opiate withdrawal. She has a history of chronic heroin and fentanyl abuse via snorting for the past year as well as a history of cocaine abuse and hepatitis C. Upon presentation she requested assistance with opiate detoxification. Patient reports she was having symptoms related to withdrawal that started a few hours prior to admission so she took one of her friends clonidine and then had worsening symptoms withdrawal. She did take another friend Suboxone about 9 PM. She denied any other illicit drug use, IVDU or alcohol use on presentation. She reports anxiety but no suicidal or homicidal ideation presentation. Vital signs on presentation showed a temperature of 97.5, heart rate 90, respiratory 18, blood pressure was 127/76 and pulse ox was 98% on room air. CBC shows a mild leukocytosis of 11.5 but otherwise unremarkable. Chemistry panel shows mild hypokalemia with a potassium of 3.4 which was replaced on admission. Her UA was not consistent with infection. Toxicology screen was negative. She was admitted the medical floor and placed on Subutex per withdrawal scale and as needed medications with a consultation to addiction for assistance with discharge planning. Current withdrawal scale score is 5 Objective Data Objective Data Vital Signs: Vital Signs Temp Pulse Resp BP Pulse Ox O2 Del Method 97.7 F L 99 16 107/54 L 98 Room Air 08/26/24 03:51 08/26/24 03:51 08/26/24 03:51 08/26/24 03:51 08/26/24 03:51 08/26/24 04:00 Oxygen Delivery Method Room Air Weight: 53.4 kg Body Mass Index (BMI) 21.5 Intake & Output: Intake and Output for Last 24 Hours 08/24/24 08/25/24 08/26/24 23:59 23:59 23:59 Intake Total 300 / 300 Balance 300 / 300 Lab / Micro Data 08/26/24:08/26/24: Labs: Laboratory Results - last 24 hr 08/26/24:: WBC 11.5 H, RBC 4.17 L, Hgb 12.4, Hct 36.7 L, MCV 88.0, MCH 29.7, MCHC 33.8, RDW Std Deviation 41.8, RDW Coeff of Nain 13.0, Plt Count 256, MPV 10.8, Immature Gran % (Auto) 0.300, Neut % (Auto) 83.0 H, Lymph % (Auto) 11.4 L, [place] % (Auto) 4.9, Eos % (Auto) 0.0, Baso % (Auto) 0.4, Absolute Neuts (auto) 9.5 H, Absolute Lymphs (auto) 1.31, Nucleated RBC % 0, Sodium 140, P otassium 3.4 L, Chloride 108 H, Carbon Dioxide 24.0, Anion Gap 8, BUN 7, Creatinine 0.74, Estim Creat Clear Calc 100.17, Est GFR (MDRD) Af Amer 120, Est GFR (MDRD) Non-Af 99, BUN/Creatinine Ratio 9.5 L, Glucose 133 H, Calcium 9.4, Serum , Qual NEGATIVE, Ethyl Alcohol < 3.0 08/26/24 01:32: Urine Opiates Screen NEGATIVE, Urine Methadone Screen NEGATIVE, Ur Barbiturates Screen NEGATIVE, Ur Phencyclidine Scrn NEGATIVE, Ur Amphetamines Screen NEGATIVE, MDMA (Ecstasy) Screen NEGATIVE, U Benzodiazepines Scrn NEGATIVE, Urine Cocaine Screen NEGATIVE, U Cannabinoids Screen NEGATIVE, Ur Drug Screen Comment Assessment & Plan Assessment/Plan (1) Hypokalemia: (2) Opioid withdrawal: (3) Heroin dependence: (4) Leukocytosis: QUALIFIERS: Leukocytosis type: unspecified Qualified Code(s): D 72.829 - Elevated white blood cell count, unspecified PLAN: Plan Acute opiate withdrawal -Patient has been abusing opiates including fentanyl and heroin for about the last year -Denies IVDU -Continue buprenorphine taper per protocol -Supportive medication for symptom management associated with withdrawal -180 consultation for assistance with discharge planning Leukocytosis -No signs of infection -Likely reactive -No need to follow Hypokalemia -Replaced -Was mild at 3.4 so no need to recheck Chronic hepatitis C -Recommend outpatient follow-up for treatment if patient desires History of cocaine abuse -Drug screen negative on presentation -Recommend ongoing cessation DVT prophylaxis -patient is low risk so will discontinue Lovenox -Encourage early and frequent ambulation
--- NOTE | 2024-08-26 08:41 | NURSING ---
Laya RHOADES under direction of primary RN
--- NOTE | 2024-08-26 09:25 | NURSING ---
pharmacy notified as zero medications on [facility] profile
[2024-08-26] MEDS: Buprenorphine HCl 2 MG TAB.SUBL 4 MG SL ×2 (10:05→17:50)
[2024-08-26] MEDS: Gabapentin 300 MG Capsule PO (10:05)
[2024-08-26 10:38] LABS: Mucous, Urine 0 SEEN /hpf (<or=2+); Red Blood Cells-Urine 0 SEEN /hpf (0-5)
[2024-08-26 10:56] LABS: Color, Urine Yellow (Yellow); Glucose, Dipstick Normal (Normal); Ketone-Dipstick Negative (Negative); Leukocyte Esterase-Dipstick 100 /ul (Negative); Nitrite-Dipstick Positive (Negative); Occult Blood-Urine 150 /ul (Negative); Protein-Dipstick Negative (Negative); Specific Gravity, Urine 1.005 (1.002-1.030); Urine Bilirubin Dipstick Negative (Negative); Urine Clarity Clear (Clear); Urine Urobilinogen Normal (Normal); Urine pH 6.5 (5.0 - 8.0)
[2024-08-26 11:10] LABS: Bacteria 1+ /hpf (None Seen); Squamous Epithelial Cells - UA 0-5 SEEN /hpf (5-10); White Blood Cells 0-5 SEEN /hpf (0-5)
[2024-08-26 11:11] LABS: Trichomonas 0-5 SEEN /hpf (None Seen)
--- NOTE | 2024-08-26 11:31 | ADDICTION ---
This job specification writer met with PT to conduct ASAM, MSE, AUDIT, DUDIT assessments and to plan for d/c. PT A+Ox4 and participated actively. All assessments completed and [facility]. Pt reported that she did not need transport post d/c.
[2024-08-26] MEDS: hydrOXYzine PAM 25 MG Capsule 50 MG PO ×2 (12:14→17:50)
[2024-08-26] MEDS: Methocarbamol 750 MG Tablet PO (17:50)
[2024-08-26] MEDS: traZODone 100 MG Tablet PO (21:55)
[2024-08-27 02:29] VITALS: BP 110/72; PULSE 74; RESP 16; TEMP 36.6; O2SAT 98
[2024-08-27] MEDS: Buprenorphine HCl 2 MG TAB.SUBL 4 MG SL (02:30)
[2024-08-27 06:44] LABS: Basophil# 0.06 X10^3/uL; Basophil% 0.8 % (0-1); Eosinophils% 1.3 % (0-5); Hematocrit 37.4 % (37-47); Hemoglobin 12.2 g/dL (12.0-15.0); Lymphocyte % 26.9 % (19-41); Mean Corp Hgb Conc 32.6 g/dL (32-36); Mean Corpuscular Hgb 29.6 pg (27.0-32.0); Mean Corpuscular Volume 90.8 fL (81-99); Mean Platelet Vol. 11.6 fl (6.2-12.0); Monocyte# 0.53 X10^3/uL; Monocyte% 6.8 % (0-10); NRBC Flagged by Analyzer 0 % (0-5); Neutrophil % 64.1 % (47-70); Platelet Count 231 K/mm3 (150-450); RBC Distribution Width CV 13.6 % (11.6-14.6); RBC Distribution Width SD 44.9 fl (35.1-43.9); Red Blood Count 4.12 M/mm3 (4.2-5.4); White Blood Count 7.8 K/mm3 (4.4-11.0)
[2024-08-27 07:15] LABS: ALB/GLOB Ratio 1.1 RATIO (0.9-2.4); AST(SGOT) 27 U/L (15-37); Alanine Aminotransfer ALT/SGPT 36 U/L (13-56); Albumin, Serum 3.7 g/dL (3.2-5.0); Alkaline Phosphatase 71 U/L (45-117); Anion Gap 8 (5-15); BUN 9 mg/dL (7-18); BUN/Creat Ratio 10.3 RATIO (10-20); Calcium,Total 8.9 mg/dL (8.5-10.1); Chloride 110 mmol/L (98-107); Creatinine, Serum 0.88 mg/dL (0.55-1.02); EST Glomerular Filtration Rate 82 mL/min (>60); Est Glom Filt Rate - Afr Amer 99 mL/min (>60); Estimated Creatinine Clearance 75.28 ml/min; Globulin 3.5 g/dL (2.2-4.2); Glucose 102 mg/dL (74-106); Potassium 3.8 mmol/L (3.5-5.1); Protein, Total 7.2 g/dL (6.4-8.2); Sodium Level 139 mmol/L (136-145)
--- NOTE | 2024-08-27 08:57 | NURSING ---
Patient leaving AMA, form signed
--- NOTE | 2024-08-27 09:24 | PN.HOSP_ITS ---
Hospitalist Note Pt left AMA.
--- NOTE | 2024-08-27 09:24 | PCM.HOSP.N ---
Hospitalist Note Pt left AMA.
== END 2024-08-27 09:03 | disposition left against medical advice (07) | DRG 770 ==
LOC: ED 02:21 → MS3 07:02
PROVIDERS: Admitting Provider Internal Medicine; Emergency Provider Emergency Medicine; Visit Provider Internal Medicine
DX: F11.23 Opioid dependence with withdrawal (principal); F14.11 Cocaine abuse, in remission; B18.2 Chronic viral hepatitis C; E87.6 Hypokalemia; D72.829 Elevated white blood cell count, unspecified; Z53.29 Procedure and treatment not carried out because of patient's decision for other reasons
CPT/HCPCS: 36415; 80048; 80053; 80307; 81001; 82077; 84703; 85025; 96360; 96361; 96372; 99221; 99285; A4216; G0378

== ENCOUNTER 2025-01-21 16:40 | Emergency (ER) | payer MEDICAID, SELFPAY ==
[2025-01-21 16:41] VITALS: BP 120/79; PULSE 101; RESP 16; TEMP 36.8; O2SAT 100; BMI 24.7
--- NOTE | 2025-01-21 17:40 | EX.ED.DYSGE1 ---
HPI <TOMMIE Khanna - Last Filed: 01/21/25 21:31> History of Present Illness Chief Complaint: Nausea/Vomiting Narrative Narrative: Patient presenting today due to nausea, vomiting, and diarrhea that started yesterday. She is currently 10 weeks , she has had an ultrasound to confirm IUP. She is scheduled to follow-up with [facility] soon but is not currently established. She denies fevers, chills, hematemesis, blood in the stool, and vaginal bleeding. She denies having any abdominal pain. No history of abdominal surgery. She is G1, P1. PFSH <TOMMIE Khanna - Last Filed: 01/21/25 21:31> [facility] Medical History Restless legs Cocaine use Hepatitis C Home Medications ?Medication ?Instructions ?Recorded ?Last Taken ?Type ondansetron 4 mg disintegrating 4 mg PO Q8H PRN PRN Nausea #10 tabs 01/21/25 Unknown Rx tablet Allergy/AdvReac Type Severity Reaction Status Date / Time No Known Allergies Allergy Verified 01/21/25 16:40 Social History Smoking Status: Never smoker ROS <TOMMIE Khanna - Last Filed: 01/21/25 21:31> ROS ED Constitutional Constitutional ED: Denies chills or fever(s) Cardiovascular Cardiovascular: Denies chest pain Respiratory/Chest Respiratory/Chest: Denies dyspnea Gastrointestinal Gastrointestinal: Reports diarrhea, nausea and vomiting; Denies abdominal pain or melena Genitourinary Genitourinary ED: Denies dysuria, hematuria or urinary urgency Integumentary Denies rash Neurologic Neurologic: Denies weakness EXAM <TOMMIE Khanna - Last Filed: 01/21/25 21:31> Physical Exam Const Vital Signs: 01/21/25 16:41 01/21/25 18:40 01/21/25 20:00 Temperature 98.3 F Temperature Source Oral Pulse Rate 101 H 101 H 89 Respiratory Rate 16 Blood Pressure 120/79 111/68 106/61 Blood Pressure Mean 92 82 76 Pulse Ox 100 100 100 Oxygen Delivery Method Room Air Room Air 01/21/25 20:33 Temperature 98.3 F Temperature Source Pulse Rate 94 Respiratory Rate 16 Blood Pressure 103/67 Blood Pressure Mean 79 Pulse Ox 100 Oxygen Delivery Method Positive well nourished, well developed and no apparent distress General Appearance ED: well developed HEENT Reports normocephalic, head/scalp atraumatic and dry mucous membranes Mouth ED: Yes dry mucous membranes Mouth: dry mucous membranes Eyes PERRL and EOMs intact bilaterally Neck full ROM and supple Chest Wall inspection of chest normal Resp normal respiratory effort and clear to auscultation bilaterally Cardio regular rate and regular rhythm GI soft to palpation, non-tender, non-distended and no masses Back/Spine normal ROM and normal to inspection Extremity normal to inspection and full ROM Neuro moves all extremities, no focal motor deficits and no sensory deficits noted Sensorium / Orientation: awake and alert Psych mental status grossly normal and thought process normal Skin no rashes or lesions noted and no wounds <Dr. Chani Louis DO - Last Filed: 01/21/25 20:27> Physical Exam Const Vital Signs: 01/21/25 16:41 01/21/25 18:40 01/21/25 20:00 Temperature 98.3 F Temperature Source Oral Pulse Rate 101 H 101 H 89 Respiratory Rate 16 Blood Pressure 120/79 111/68 106/61 Blood Pressure Mean 92 82 76 Pulse Ox 100 100 100 Oxygen Delivery Method Room Air Room Air 01/21/25 20:33 Temperature 98.3 F Temperature Source Pulse Rate 94 Respiratory Rate 16 Blood Pressure 103/67 Blood Pressure Mean 79 Pulse Ox 100 Oxygen Delivery Method [facility] <TOMMIE Khanna - Last Filed: 01/21/25 21:31> [facility] Narrative Medical decision making narrative: Patient presenting today with nausea, vomiting, diarrhea she has had since yesterday. She is currently 10 weeks . She denies having any abdominal pain or vaginal bleeding. She does appear dry and will be given IV fluids and Zofran. Labs reveal a leukocytosis of 15.8 which is likely reactive, her BMP is negative for electrolyte derangement and KOMAL. Anion gap is 18 UA shows ketones and 2+ bacteria, negative WBCs and nitrites. This will be cultured. I suspect she likely has gastroenteritis. She does not have any abdominal pain or tenderness. I do not feel abdominal imaging is indicated. Reexamination she is tolerating p.o. challenge and feeling improved. I will give her a prescription for Zofran and she will be discharged home in stable condition. Return instructions discussed. I have personally performed a face to face assessment of the patient and have reviewed the [facility] Note. I performed a substantive portion of the visit including all aspects of the following. My matta findings include: History is [patient presents to the emergency department with vomiting that started yesterday. She also has diarrhea. Has had about 7-10 episodes of diarrhea and also vomiting. She denies abdominal pain. She has felt hot but has not taken her temperature. She denies any sick contacts. Patient is 10 weeks . 2 weeks ago had a pelvic sonogram that showed an intrauterine . She is . She denies vaginal bleeding.] Exam is [HEENT-PERRLA, EOMI. Cranial nerves II through XII grossly intact. TMs clear. Mucous membranes moist. No adenopathy. Cardiovascular-regular rate and rhythm without murmur or ectopy Lungs-clear to auscultation, chest wall stable without crepitus or subcu emphysema Abdomen-normoactive bowel sounds, soft, nontender, no rebound or rigidity, no peritoneal signs. Extremities-intact ?4, normal range of motion, normal pulses, atraumatic] Medical Decison Making [patient given a liter Mustain fluid bolus and had basic labs. She does have an elevated white blood cell count of 15.8 with hemoglobin 14 and platelet count of 282. Chemistries unremarkable. Urinalysis negative for infection but did have +2 bacteria therefore urine culture was sent. Patient is asymptomatic. I do not feel she needs antibiotics. Patient had 150 urine ketones. She was given Zofran and she had no further vomiting. She was given a p.o. challenge which she tolerated well. This point suspect viral gastroenteritis. She has no abdominal pain and her abdominal exam is benign. I do not think she needs any imaging. Recommended returning for persistent vomiting, diarrhea D, dehydration, abdominal pain, or condition worsen anyway.] Other additions or changes: [None] Lab Data Labs: Laboratory Results - last 24 hr 01/21/25 01/21/25 18:05 19:00 WBC 15.8 H RBC 4.76 Hgb 14.2 Hct 41.4 MCV 87.0 MCH 29.8 MCHC 34.3 RDW Std Deviation 41.9 RDW Coeff of Nain 13.2 Plt Count 282 MPV 12.0 Immature Gran % (Auto) 0.300 Neut % (Auto) 89.6 H Lymph % (Auto) 7.4 L [place] % (Auto) 2.5 Eos % (Auto) 0.0 Baso % (Auto) 0.2 Absolute Neuts (auto) 14.1 H Absolute Lymphs (auto) 1.17 Nucleated RBC % 0 Sodium 137 Potassium 4.7 Chloride 102 Carbon Dioxide 16.5 L Anion Gap 18 H BUN 9 Creatinine 0.65 L Estim Creat Clear Calc 110.97 Est GFR (MDRD) Non-Af 123 BUN/Creatinine Ratio 14.3 Glucose 75 Calcium 9.8 Urine Color Yellow Urine Clarity Clear Urine pH 6.0 Ur Specific Brackney 1.030 Urine Protein 30 H Urine Glucose (UA) Normal Urine Ketones 150 A* Urine Occult Blood Negative Urine Nitrite Negative Urine Bilirubin Negative Urine Urobilinogen Normal Ur Leukocyte Esterase 25 H Urine RBC 0 SEEN Urine WBC 0-5 SEEN Ur Squamous Epith Cells 0-5 SEEN Urine Bacteria 2+ Urine Mucus 1+ <Dr. Chani Louis, DO - Last Filed: 01/21/25 20:27> [facility] Narrative Medical decision making narrative: Patient presenting today with nausea, vomiting, diarrhea she has had since yesterday. She is currently 10 weeks . She denies having any abdominal pain or vaginal bleeding. She does appear dry and will be given IV fluids and Zofran. I have personally performed a face to face assessment of the patient and have reviewed the [facility] Note. I performed a substantive portion of the visit including all aspects of the following. My matta findings include: History is [patient presents to the emergency department with vomiting that started yesterday. She also has diarrhea. Has had about 7-10 episodes of diarrhea and also vomiting. She denies abdominal pain. She has felt hot but has not taken her temperature. She denies any sick contacts. Patient is 10 weeks . 2 weeks ago had a pelvic sonogram that showed an intrauterine . She is . She denies vaginal bleeding.] Exam is [HEENT-PERRLA, EOMI. Cranial nerves II through XII grossly intact. TMs clear. Mucous membranes moist. No adenopathy. Cardiovascular-regular rate and rhythm without murmur or ectopy Lungs-clear to auscultation, chest wall stable without crepitus or subcu emphysema Abdomen-normoactive bowel sounds, soft, nontender, no rebound or rigidity, no peritoneal signs. Extremities-intact ?4, normal range of motion, normal pulses, atraumatic] Medical Decison Making [patient given a liter Mustain fluid bolus and had basic labs. She does have an elevated white blood cell count of 15.8 with hemoglobin 14 and platelet count of 282. Chemistries unremarkable. Urinalysis negative for infection but did have +2 bacteria therefore urine culture was sent. Patient is asymptomatic. I do not feel she needs antibiotics. Patient had 150 urine ketones. She was given Zofran and she had no further vomiting. She was given a p.o. challenge which she tolerated well. This point suspect viral gastroenteritis. She has no abdominal pain and her abdominal exam is benign. I do not think she needs any imaging. Recommended returning for persistent vomiting, diarrhea D, dehydration, abdominal pain, or condition worsen anyway.] Other additions or changes: [None] Lab Data Attestation: I reviewed the patient's lab results. Labs: Laboratory Results - last 24 hr 01/21/25 01/21/25 18:05 19:00 WBC 15.8 H RBC 4.76 Hgb 14.2 Hct 41.4 MCV 87.0 MCH 29.8 MCHC 34.3 RDW Std Deviation 41.9 RDW Coeff of Nain 13.2 Plt Count 282 MPV 12.0 Immature Gran % (Auto) 0.300 Neut % (Auto) 89.6 H Lymph % (Auto) 7.4 L [place] % (Auto) 2.5 Eos % (Auto) 0.0 Baso % (Auto) 0.2 Absolute Neuts (auto) 14.1 H Absolute Lymphs (auto) 1.17 Nucleated RBC % 0 Sodium 137 Potassium 4.7 Chloride 102 Carbon Dioxide 16.5 L Anion Gap 18 H BUN 9 Creatinine 0.65 L Estim Creat Clear Calc 110.97 Est GFR (MDRD) Non-Af 123 BUN/Creatinine Ratio 14.3 Glucose 75 Calcium 9.8 Urine Color Yellow Urine Clarity Clear Urine pH 6.0 Ur Specific [place]ackney 1.030 Urine Protein 30 H Urine Glucose (UA) Normal Urine Ketones 150 A* Urine Occult Blood Negative Urine Nitrite Negative Urine Bilirubin Negative Urine Urobilinogen Normal Ur Leukocyte Esterase 25 H Urine RBC 0 SEEN Urine WBC 0-5 SEEN Ur Squamous Epith Cells 0-5 SEEN Urine Bacteria 2+ Urine Mucus 1+ Discharge Plan Triage Chief Complaint: Nausea/Vomiting ED Midlevel Provider: Nazanin Hancock ED Provider: Chani Louis Dx/Rx/DC Orders Clinical Impression: Viral gastroenteritis Instructions: ED Gastroenteritis, Viral (Adult) Prescriptions: New ondansetron 4 mg tablet,disintegrating 4 mg PO Q8H PRN PRN (Reason: Nausea) Qty: 10 0RF Primary Care Provider: Care Physician,No Primary Referrals: Care Physician,No Primary [Primary Care Provider] - Print Language: Persian Disposition Disposition: Home, Self Care Discharge Date/Time: 01/21/25 20:35
[2025-01-21 18:17] LABS: Absolute Lymphocyte Count 1.17 X10^3/uL (0.83-4.51); Absolute Neutrophil Count 14.1 X10^3/uL (2.0-7.7); Basophil# 0.03 X10^3/uL; Basophil% 0.2 % (0-1); Hematocrit 41.4 % (37-47); Hemoglobin 14.2 g/dL (12.0-15.0); Lymphocyte # 1.17 X10^3/ul (0.83-4.51); Lymphocyte % 7.4 % (19-41); Mean Corp Hgb Conc 34.3 g/dL (32-36); Mean Corpuscular Hgb 29.8 pg (27.0-32.0); Monocyte% 2.5 % (0-10); NRBC Flagged by Analyzer 0 % (0-5); Neutrophil % 89.6 % (47-70); Platelet Count 282 K/mm3 (150-450); RBC Distribution Width CV 13.2 % (11.6-14.6); RBC Distribution Width SD 41.9 fl (35.1-43.9); Red Blood Count 4.76 M/mm3 (4.2-5.4); White Blood Count 15.8 K/mm3 (4.4-11.0)
[2025-01-21 18:38] LABS: Anion Gap 18 (5-15); BUN 9 mg/dL (4-19); BUN/Creat Ratio 14.3 RATIO (10-20); Calcium,Total 9.8 mg/dL (7.6-11.0); Carbon Dioxide 16.5 mmol/L (21.0-32.0); Chloride 102 mmol/L (98-108); Creatinine, Serum 0.65 mg/dL (0.70-1.20); EST Glomerular Filtration Rate 123 (>60); Estimated Creatinine Clearance 110.97 ml/min (50-250); Glucose 75 mg/dL (70-99); Potassium 4.7 mmol/L (3.3-5.1); Sodium Level 137 mmol/L (133-145)
[2025-01-21] MEDS: 0.9% Normal Saline (1000mL) 1,000 ML 999 ML IV (18:38)
[2025-01-21 18:40] VITALS: BP 111/68; PULSE 101; O2SAT 100
[2025-01-21 19:16] LABS: Red Blood Cells-Urine 0 SEEN /hpf (0-5)
[2025-01-21 19:17] LABS: Color, Urine Yellow (Yellow); Glucose, Dipstick Normal (Normal); Leukocyte Esterase-Dipstick 25 /ul (Negative); Nitrite-Dipstick Negative (Negative); Occult Blood-Urine Negative /ul (Negative); Protein-Dipstick 30 mg/dl (Negative); Urine Bilirubin Dipstick Negative (Negative); Urine Clarity Clear (Clear); Urine Urobilinogen Normal (Normal)
[2025-01-21 19:20] LABS: Ketone-Dipstick 150 mg/dl (Negative)
[2025-01-21] MEDS: Ondansetron 4 MG/2 ML Vial IV (19:24)
[2025-01-21 19:27] LABS: Bacteria 2+ /hpf (None Seen); Mucous, Urine 1+ /hpf (<or=2+); Squamous Epithelial Cells - UA 0-5 SEEN /hpf (5-10); White Blood Cells 0-5 SEEN /hpf (0-5)
[2025-01-21 20:00] VITALS: BP 106/61; PULSE 89; O2SAT 100
[2025-01-21 20:33] VITALS: BP 103/67; PULSE 94; RESP 16; TEMP 36.8; O2SAT 100
== END 2025-01-21 20:35 | disposition home or self-care (01) ==
PROVIDERS: Physician Assistant; Emergency Provider Emergency Medicine; Visit Provider Emergency Medicine
DX: O98.811 Other maternal infectious and parasitic diseases complicating pregnancy, first trimester (principal); A08.4 Viral intestinal infection, unspecified; Z3A.10 10 weeks gestation of pregnancy
CPT/HCPCS: 80048; 81001; 85025; 96361; 96374; 99283; A4216; J2405